=== PATIENT | male | born 1930 | race Caucasian/White ===

== ENCOUNTER 2017-12-25 17:33 | Inpatient (IN) | payer MEDICARE, MEDICAID ==
[~2017-12-25] VITALS: Ht 170.2 cm; Wt 79.4 kg
[2017-12-25] MEDS ORDERED: MORPHINE SULFATE 4 MG/ML CPJ (NOT FOR IM USE) IV STA (20:36)
[2017-12-25] MEDS ORDERED: ONDANSETRON HCL 4MG/2ML VIAL IV STA (20:36)
[2017-12-25] MEDS ORDERED: PIPERACILLIN/TAZ 3.375G PREMIX 50 ML IV ONE (20:45)
[2017-12-25] MEDS ORDERED: VANCOMYCIN 1 G PREMIX 200 ML IV ONE (20:45)
[2017-12-25 22:08] LABS: BASOPHILS % 0.3 % (0.0-2.0); EOSINOPHILS % 2.5 % (0.0-5.0); HEMATOCRIT. 37.4 % (42.0-52.0); HEMOGLOBIN. 12.4 g/dL (14.0-18.0); LYMPHOCYTES % 26.3 % (20.0-50.0); MEAN CORPUSCULAR HEMOGLOBIN 31.8 pg (28.0-32.0); MEAN CORPUSCULAR VOLUME 95.7 fL (80.0-94.0); MEAN PLATELET VOLUME 8.6 fl (7.4-10.4); MONOCYTES % 4.9 % (2.0-8.0); PLATELET 303 x1000/uL (130-400); RED BLOOD CELL COUNT 3.91 mill/uL (4.7-6.1); RED CELL DISTRIBUTION WIDTH 13.4 % (11.6-14.6)
[2017-12-25 22:11] LABS: CHLORIDE 108 mEq/L (98-107)
[2017-12-25 22:13] LABS: PROTHROMBIN TIME 10.3 sec (9.1-11.1)
[2017-12-25 22:52] LABS: CLARITY URINE CLEAR (CLEAR); COLOR URINE YELLOW (YELLOW); KETONES URINE NEGATIVE (NEGATIVE); LEUKOCYTE ESTERASE URINE NEGATIVE (NEGATIVE); NITRITE URINE NEGATIVE (NEGATIVE); OCCULT BLOOD URINE NEGATIVE (NEGATIVE); PROTEIN URINE 2+ (NEGATIVE); SPECIFIC GRAVITY URINE 1.018 (1.005-1.030); UROBILINOGEN URINE 0.2 E.U./dL (0.2-1.0)
[2017-12-26] VITALS (7 sets, daily range): BP systolic 116–160; BP diastolic 63–89
[2017-12-26] MEDS ORDERED: ACETAMINOPHEN 325MG TABLET PO PRN (00:45)
[2017-12-26] MEDS ORDERED: CLONIDINE 0.1MG TABLET PO PRN (00:45)
[2017-12-26] MEDS ORDERED: PIPERACILLIN/TAZ 3.375G PREMIX 50 ML IV SCH (00:45)
[2017-12-26] MEDS ORDERED: ONDANSETRON HCL 4MG/2ML VIAL IV PRN (00:45)
[2017-12-26] MEDS ORDERED: MAGNESIUM/ALUMINUM HYDROXIDE/SIMETHICONE 30ML UDC PO PRN (00:45)
[2017-12-26] MEDS ORDERED: DIPHENHYDRAMINE 50MG/ML VIAL IV PRN (00:45)
[2017-12-26] MEDS ORDERED: IPRATROPIUM/ALBUTEROL 0.5-3(2.5)MG/3ML NEB INH PRN (00:45)
[2017-12-26] MEDS ORDERED: DEXTROSE 50% WATER 50ML SYRINGE IV PRN (00:45)
[2017-12-26] MEDS: SODIUM CHLORIDE 0.9% INJ 3ML FLUSH IVF SCH ×3 (06:00→22:00)
[2017-12-26] MEDS: BLOOD SUGAR DIAGNOSTIC STRIP TEST SCH ×3 (08:09→21:00)
[2017-12-26] MEDS ORDERED: FERR325T6 PO (08:16)
[2017-12-26] MEDS ORDERED: DOCU-150 MT (08:16)
[2017-12-26] MEDS ORDERED: METO-396 PO (08:16)
[2017-12-26] MEDS ORDERED: GABA-529 MT (08:16)
[2017-12-26] MEDS ORDERED: CLOP75TA33 PO (08:16)
[2017-12-26] MEDS ORDERED: LEVVL SQ (08:16)
[2017-12-26] MEDS ORDERED: INSASP SUBCUT (08:16)
[2017-12-26] MEDS ORDERED: LOSA50TA20 MT (08:16)
[2017-12-26] MEDS ORDERED: HYDR12.54 PO (08:16)
[2017-12-26] MEDS: PIPERACILLIN/TAZ 2.25G PREMIX 50 ML IV SCH ×4 (09:04→23:52)
[2017-12-26] MEDS: INSULIN LISPRO 100 UNITS/ML SUBCUT SCH ×4 (09:41→21:58)
[2017-12-26] MEDS: TAMSULOSIN HCL 0.4MG SR CAPSULE PO SCH (09:42)
[2017-12-26] MEDS: FAMOTIDINE 20MG TABLET PO SCH (09:43)
[2017-12-26] MEDS: LOSARTAN POTASSIUM 100 MG TABLET PO SCH (09:43)
[2017-12-26] MEDS: AMLODIPINE 2.5MG TABLET PO SCH ×2 (09:43→21:57)
[2017-12-26] MEDS: DOCUSATE SODIUM 100MG CAPSULE PO SCH ×2 (09:43→17:51)
[2017-12-26] MEDS: ATENOLOL 25MG TABLET PO SCH (09:44)
[2017-12-26] MEDS: HYDROCODONE/APAP 7.5/325MG 1 TAB TABLET PO PRN (17:53)
[2017-12-26] MEDS: FUROSEMIDE 40MG/4ML VIAL IVP SCH (17:54)
[2017-12-26] MEDS ORDERED: METOLAZONE 5MG TABLET PO NR (18:30)
[2017-12-26] MEDS: ATORVASTATIN CALCIUM 40MG TABLET PO SCH (21:56)
[2017-12-26] MEDS ORDERED: INSULIN GLARGINE UD 100 UNITS/ML SYR SUBCUT SCH ×2 (22:00)
[2017-12-26] MEDS: VANCOMYCIN 1 G PREMIX 200 ML IV SCH (23:51)
[2017-12-27] VITALS: BP 118/46
[2017-12-27 04:00] VITALS: BP 159/62
[2017-12-27] MEDS: FUROSEMIDE 40MG/4ML VIAL IVP SCH ×2 (05:51→17:24)
[2017-12-27] MEDS: PIPERACILLIN/TAZ 2.25G PREMIX 50 ML IV SCH ×3 (05:52→18:17)
[2017-12-27] MEDS: SODIUM CHLORIDE 0.9% INJ 3ML FLUSH IVF SCH ×3 (05:57→22:17)
[2017-12-27] MEDS: BLOOD SUGAR DIAGNOSTIC STRIP TEST SCH ×4 (06:35→21:07)
[2017-12-27 07:03] LABS: PHOSPHORUS 4.3 mg/dL (2.5-4.9)
[2017-12-27 08:00] VITALS: BP 142/54
[2017-12-27] MEDS ORDERED: METOLAZONE 2.5MG TABLET PO NR (08:30)
[2017-12-27] MEDS: INSULIN LISPRO 100 UNITS/ML SUBCUT SCH ×4 (08:50→21:12)
[2017-12-27] MEDS: LOSARTAN POTASSIUM 100 MG TABLET PO SCH (10:11)
[2017-12-27] MEDS: FAMOTIDINE 20MG TABLET PO SCH (10:11)
[2017-12-27] MEDS: TAMSULOSIN HCL 0.4MG SR CAPSULE PO SCH (10:11)
[2017-12-27] MEDS: ATENOLOL 25MG TABLET PO SCH (10:11)
[2017-12-27] MEDS: DOCUSATE SODIUM 100MG CAPSULE PO SCH ×2 (10:12→17:24)
[2017-12-27] MEDS: AMLODIPINE 2.5MG TABLET PO SCH ×2 (10:13→21:08)
[2017-12-27] MEDS: POTASSIUM CHLORIDE 20MEQ TABLET SR PO SCH (10:26)
[2017-12-27] MEDS: HYDROCODONE/APAP 7.5/325MG 1 TAB TABLET PO PRN (12:20)
[2017-12-27 16:00] VITALS: BP 131/55
[2017-12-27 20:00] VITALS: BP 149/96
[2017-12-27] MEDS: ATORVASTATIN CALCIUM 40MG TABLET PO SCH (21:07)
[2017-12-27] MEDS: PREGABALIN 25MG CAPSULE PO SCH (21:08)
[2017-12-27] MEDS: INSULIN GLARGINE UD 100 UNITS/ML SYR SUBCUT SCH (22:27)
[2017-12-27] MEDS: VANCOMYCIN 1 G PREMIX 200 ML IV SCH (22:35)
[2017-12-28] VITALS (7 sets, daily range): BP systolic 116–160; BP diastolic 48–65
[2017-12-28] MEDS: PIPERACILLIN/TAZ 2.25G PREMIX 50 ML IV SCH ×5 (00:01→23:29)
[2017-12-28] MEDS: SODIUM CHLORIDE 0.9% INJ 3ML FLUSH IVF SCH ×3 (05:33→21:59)
[2017-12-28] MEDS: FUROSEMIDE 40MG/4ML VIAL IVP SCH ×2 (06:51→17:15)
[2017-12-28] MEDS: BLOOD SUGAR DIAGNOSTIC STRIP TEST SCH ×4 (07:01→21:18)
[2017-12-28] MEDS: INSULIN LISPRO 100 UNITS/ML SUBCUT SCH ×4 (09:40→21:32)
[2017-12-28] MEDS: PREGABALIN 25MG CAPSULE PO SCH ×2 (09:44→21:27)
[2017-12-28] MEDS: DOCUSATE SODIUM 100MG CAPSULE PO SCH ×2 (09:45→17:00)
[2017-12-28] MEDS: LOSARTAN POTASSIUM 100 MG TABLET PO SCH (09:45)
[2017-12-28] MEDS: ATENOLOL 25MG TABLET PO SCH (09:45)
[2017-12-28] MEDS: POTASSIUM CHLORIDE 20MEQ TABLET SR PO SCH (09:45)
[2017-12-28] MEDS: TAMSULOSIN HCL 0.4MG SR CAPSULE PO SCH (09:46)
[2017-12-28] MEDS: FAMOTIDINE 20MG TABLET PO SCH (09:46)
[2017-12-28] MEDS: AMLODIPINE 2.5MG TABLET PO SCH ×2 (09:46→21:29)
[2017-12-28] MEDS ORDERED: MAGNESIUM SULFATE 2 GM in DEXTROSE 5% WATER 50 ML IV NR (10:00)
[2017-12-28] MEDS: CLOPIDOGREL 75MG TABLET PO SCH (15:15)
[2017-12-28] MEDS: ASPIRIN 81MG EC TABLET PO SCH (15:16)
[2017-12-28] MEDS: ATORVASTATIN CALCIUM 40MG TABLET PO SCH (21:27)
[2017-12-28] MEDS: VANCOMYCIN 1 G PREMIX 200 ML IV SCH (22:44)
[2017-12-28] MEDS: INSULIN GLARGINE UD 100 UNITS/ML SYR SUBCUT SCH (23:39)
[2017-12-29] VITALS: BP 138/62
[2017-12-29] MEDS: HYDROCODONE/APAP 7.5/325MG 1 TAB TABLET PO PRN (03:28)
[2017-12-29 04:00] VITALS: BP 140/66
[2017-12-29] MEDS: SODIUM CHLORIDE 0.9% INJ 3ML FLUSH IVF SCH (05:03)
[2017-12-29] MEDS: PIPERACILLIN/TAZ 2.25G PREMIX 50 ML IV SCH (05:03)
[2017-12-29] MEDS: FUROSEMIDE 40MG/4ML VIAL IVP SCH (06:27)
[2017-12-29] MEDS: BLOOD SUGAR DIAGNOSTIC STRIP TEST SCH (06:38)
[2017-12-29] MEDS: INSULIN LISPRO 100 UNITS/ML SUBCUT SCH (06:54)
[2017-12-29 08:50] VITALS: BP 125/51
[2017-12-29] MEDS: ATENOLOL 25MG TABLET PO SCH (09:00)
[2017-12-29] MEDS: DOCUSATE SODIUM 100MG CAPSULE PO SCH (09:29)
[2017-12-29] MEDS: PREGABALIN 25MG CAPSULE PO SCH (09:30)
[2017-12-29] MEDS: FAMOTIDINE 20MG TABLET PO SCH (09:30)
[2017-12-29] MEDS: CLOPIDOGREL 75MG TABLET PO SCH (09:31)
[2017-12-29] MEDS: ASPIRIN 81MG EC TABLET PO SCH (09:31)
[2017-12-29] MEDS: LOSARTAN POTASSIUM 100 MG TABLET PO SCH (09:31)
[2017-12-29] MEDS: TAMSULOSIN HCL 0.4MG SR CAPSULE PO SCH (09:31)
[2017-12-29] MEDS: AMLODIPINE 2.5MG TABLET PO SCH (09:31)
[2017-12-29] MEDS: POTASSIUM CHLORIDE 20MEQ TABLET SR PO SCH (09:31)
== END 2017-12-29 10:23 | disposition home health service (06) | DRG 637 ==
LOC: ER 17:33 → 6EST 21:48 → EDBEDREQ 21:51 → EDBEDREQTM 21:51 → ENRESERV 23:28
PROVIDERS: ADMIT Internal Medicine; ATTEND Internal Medicine
DX: E11.621 Type 2 diabetes mellitus with foot ulcer (principal); I50.33 Acute on chronic diastolic (congestive) heart failure; L97.528 Non-pressure chronic ulcer of other part of left foot with other specified severity; E11.51 Type 2 diabetes mellitus with diabetic peripheral angiopathy without gangrene; E11.42 Type 2 diabetes mellitus with diabetic polyneuropathy; I11.0 Hypertensive heart disease with heart failure; I87.2 Venous insufficiency (chronic) (peripheral); I89.0 Lymphedema, not elsewhere classified; Z96.649 Presence of unspecified artificial hip joint; B87.89 Myiasis of other sites; E78.00 Pure hypercholesterolemia, unspecified; I25.10 Atherosclerotic heart disease of native coronary artery without angina pectoris; Z87.11 Personal history of peptic ulcer disease; Z85.51 Personal history of malignant neoplasm of bladder; I25.2 Old myocardial infarction; Z89.411 Acquired absence of right great toe; Z86.73 Personal history of transient ischemic attack (TIA), and cerebral infarction without residual deficits; Z95.1 Presence of aortocoronary bypass graft; Z83.3 Family history of diabetes mellitus
CPT/HCPCS: 36415; 71045; 73630; 80048; 80053; 80202; 81003; 82962; 83605; 83735; 83880; 84100; 84484; 85025; 85610; 86850; 86900; 87040; 87070; 87077; 87086; 87186; 87205; 93005; 93970; 94640; 96365; 96366; 96375; 97162; 99285; C1893; J1815; J1940; J2270; J2405; J2543; J3370; J3475; J7030; J7050; J7060; J7620